=== PATIENT | male | born 1960 | race Caucasian/White ===

== ENCOUNTER → 2023-03-06 | Day surgery (SDC) | payer BC ==
[~2023-03-06] MED LIST: AMLODIPINE BESY10 MG PO; ASPIRIN81 MG PO; ATACAND HCT 321 EAC1; ATORVASTATIN CA20 MG PO; BUSPIRONE HCL15 MG PO; FENTANYL CITRATE/PF 100MCG/2 ML INJ ONE; HYOSCYAMINE SULFATE 0.5 MG/ML INJ ONE; LACTATED RINGER'S 1,000 ML ONE; LIDOCAINE HCL 2% LOCAL INJ 5 ML SDV VIAL INJ ONE; METOCLOPRAMIDE HCL 10 MG/2ML VIAL ONE; PROPOFOL IV EMULSION 10 MG/ML 20 ML VIAL ONE; PROPOFOL IV EMULSION 100 ML IV ONE; QUERCETIN500 MG; SERTRALINE HCL100 MG PO; TRAZODONE HCL100 MG PO; VITAMIN C1000 MG PO; VITAMIN D
[2023-03-06 08:45] VITALS: BP 146/96
== END | disposition home or self-care (01) ==
LOC: OR 07:12
PROVIDERS: ATTEND Internal Medicine Gastroenterology
DX: Z12.11 Encounter for screening for malignant neoplasm of colon (principal); D12.0 Benign neoplasm of cecum; K57.30 Diverticulosis of large intestine without perforation or abscess without bleeding; K64.8 Other hemorrhoids; Z87.19 Personal history of other diseases of the digestive system; Z71.3 Dietary counseling and surveillance; I10 Essential (primary) hypertension; Z71.89 Other specified counseling; E78.00 Pure hypercholesterolemia, unspecified; F41.9 Anxiety disorder, unspecified; Z01.810 Encounter for preprocedural cardiovascular examination; Z79.82 Long term (current) use of aspirin; Z79.899 Other long term (current) drug therapy; Z68.41 Body mass index [BMI] 40.0-44.9, adult; Z86.16 Personal history of COVID-19
CPT/HCPCS: 45380; 45385; 93005; J1980; J2001; J2704 ×2; J2765; J3010; J7121; 45378